=== PATIENT | female | born 1945 | race Caucasian/White ===

== ENCOUNTER 2020-07-10 01:17 | Inpatient (IN) | payer OTHER, SELFPAY ==
[~2020-07-10] VITALS: Ht 167.6 cm; Wt 90.7 kg
[2020-07-10] VITALS (23 sets, daily range): BP systolic 65–136
[~2020-07-10 01:17] MED LIST: BISO5TAB15 PO; FURO-149 PO; LISI-209 PO; PRAV20TA PO; WARF3TAB PO
[2020-07-10] MEDS ORDERED: NACL 0.9% 1,000 ML IV ONE ×2 (01:34)
[2020-07-10] MEDS ORDERED: ACETAMINOPHEN 650 MG/20.3 ML UDC PO ONE (02:00)
[2020-07-10 02:08] LABS: BASOPHILS % (AUTO) 0.1 % (0.0-2.0); EOSINOPHILS % (AUTO) 0.1 % (0.0-4.0); HEMATOCRIT 28.8 % (36-48); HEMOGLOBIN 9.3 g/dL (12.0-16.0); LYMPHOCYTES # (AUTO) 0.6 K/uL (1.0-5.5); LYMPHOCYTES % (AUTO) 4.2 % (20.5-51.5); MEAN CORPUSCULAR HEMOGLOBIN 28 pg (27-31); MEAN CORPUSCULAR HGB CONC 32 % (32-36); MEAN CORPUSCULAR VOLUME 85 fL (79.0-98.0); MONOCYTES # (AUTO) 0.3 K/uL (0.0-1.0); MONOCYTES % (AUTO) 2.5 % (1.7-9.3); NEUTROPHILS # (AUTO) 12.3 K/uL (1.8-7.7); NEUTROPHILS % (AUTO) 93.1 % (40.0-70.0); PLATELET COUNT (AUTO) 209 K/uL (130-430); RED BLOOD CELL COUNT(AUTO) 3.37 MIL/uL (4.2-6.2); RED CELL DISTRIBUTION WIDTH 16.3 % (9.0-15.0); WHITE BLOOD COUNT (AUTO) 13.2 K/uL (4.8-10.8)
[2020-07-10 02:08] LABS: BILIRUBIN,URINE NEGATIVE (NEGATIVE); CLARITY/URINE CLEAR (CLEAR); COLOR,URINE YELLOW (YELLOW); GLUCOSE,URINE NEGATIVE (NEGATIVE); KETONES,URINE NEGATIVE (NEGATIVE); LEUKOCYTE ESTERASE ,URINE 2+ (NEGATIVE); NITRITE, URINE NEGATIVE (NEGATIVE); PROTEIN URINE TRACE (NEGATIVE); UROBILINOGEN,URINE 0.2 (0.2-1.0)
[2020-07-10 02:14] LABS: BLOOD, URINE TRACE (NEGATIVE)
[2020-07-10 02:22] LABS: BACTERIA,URINE MODERATE /HPF (None Seen); WBC,URINE >100 /HPF (0-3)
[2020-07-10 02:22] LABS: ANION GAP 7 (5-15); CALCIUM 8.7 mg/dL (8.4-11.0); CHLORIDE 102 mmol/L (98-107); CREATININE 1.68 mg/dL (0.55-1.30); GLUCOSE 110 mg/dL (70-99); POTASSIUM 3.9 mmol/L (3.5-5.1); SODIUM SERUM 135 mmol/L (136-145); UREA NITROGEN, BLOOD 54 mg/dL (8-21)
[2020-07-10 02:30] LABS: INR 2.2 (0.8-1.2); PROTHROMBIN TIME 21.6 SECS (9.5-12.5)
[2020-07-10 02:40] LABS: ALANINE AMINOTRANSFERASE 19 U/L (12-78); ALBUMIN 2.3 g/dL (3.4-4.8); ASPARTATE AMINOTRANSFERASE 25 U/L (10-37); TOTAL BILIRUBIN 1.4 mg/dL (0.0-1.0)
[2020-07-10] MEDS ORDERED: ACETAMINOPHEN 650 MG/20.3 ML UDC ONE (02:41)
[2020-07-10] MEDS ORDERED: cefTRIAXone 1 GM IVPB PREMIX 50 ML IV ONE (03:45)
[2020-07-10] MEDS ORDERED: ZIA2.5/6.25 PO (03:57)
[2020-07-10] MEDS ORDERED: ACET325T PO (03:57)
[2020-07-10] MEDS ORDERED: DOCU-144 PO (03:58)
[2020-07-10] MEDS ORDERED: LORA-258 PO (04:05)
[2020-07-10] MEDS ORDERED: LISI40TA4 PO (04:05)
[2020-07-10] MEDS ORDERED: FOLI-43 PO (04:05)
[2020-07-10] MEDS ORDERED: FURO-149 PO (04:05)
[2020-07-10] MEDS ORDERED: QUET50TA PO (04:05)
[2020-07-10] MEDS ORDERED: PRAV40TA PO (04:05)
[2020-07-10] MEDS ORDERED: ACET-73 PO (04:08)
[2020-07-10] MEDS: NACL 0.9% 1,000 ML IV SCH ×2 (04:45→16:53)
[2020-07-10] MEDS ORDERED: NOREPINEPHRINE BITARTRATE 4 MG in NS 246 ML IV PRN (07:30)
[2020-07-10] MEDS ORDERED: NOREPINEPHRINE 4 MG/4 ML VIAL IV ONE ×2 (08:07)
[2020-07-10] MEDS ORDERED: ACETAMINOPHEN 325 MG TABLET PO PRN (08:15)
[2020-07-10] MEDS ORDERED: ACETAMINOPHEN 500 MG TABLET PO PRN (08:15)
[2020-07-10] MEDS: PIPERACILLIN/TAZO 2.25G/DEX-IS 50 ML IV SCH ×3 (08:41→21:59)
[2020-07-10] MEDS: DOCUSATE SODIUM 100 MG CAPSULE PO SCH ×3 (08:43→21:00)
[2020-07-10] MEDS: FOLIC ACID 1 MG TABLET PO SCH ×2 (08:43→09:00)
[2020-07-10] MEDS ORDERED: VANCOMYCIN HCL 1 GM/NS PREMIX 250 ML IV ONE (12:00)
[2020-07-10] MEDS ORDERED: METOCLOPRAMIDE HCL 10 MG/2 ML VIAL IVP ONE (13:14)
[2020-07-10] MEDS ORDERED: PROPOFOL 200MG/ 20ML VIAL (DIPRIVAN) IV ONE (13:14)
[2020-07-10] MEDS ORDERED: BUPIVACAINE /EPINEPHRINE/PF 0.25% 30 ML VIAL INJ ONE (13:14)
[2020-07-10] MEDS ORDERED: SEVOFLURANE 15 MIN GAS INH ONE (13:14)
[2020-07-10] MEDS ORDERED: NS IRRIG SOLN 1000 ML IR ONE (13:14)
[2020-07-10] MEDS ORDERED: ONDANSETRON HCL 4 MG/2 ML VIAL IVP ONE (13:14)
[2020-07-10] MEDS ORDERED: DEXAMETHASONE SOD PHOSPHATE 4 MG/ML VIAL IVP ONE (13:14)
[2020-07-10] MEDS: WARFARIN SODIUM 3 MG TABLET PO SCH (17:08)
[2020-07-11] VITALS (23 sets, daily range): BP systolic 90–140
[2020-07-11] MEDS: PIPERACILLIN/TAZO 2.25G/DEX-IS 50 ML IV SCH ×3 (05:40→21:33)
[2020-07-11 06:25] LABS: BASOPHILS # (AUTO) 0.1 K/uL (0.0-0.2); BASOPHILS % (AUTO) 0.9 % (0.0-2.0); EOSINOPHILS # (AUTO) 0.4 K/uL (0.0-0.4); EOSINOPHILS % (AUTO) 3.3 % (0.0-4.0); HEMOGLOBIN 9.7 g/dL (12.0-16.0); LYMPHOCYTES # (AUTO) 0.6 K/uL (1.0-5.5); MEAN CORPUSCULAR HEMOGLOBIN 28 pg (27-31); MEAN CORPUSCULAR HGB CONC 32 % (32-36); MEAN CORPUSCULAR VOLUME 85 fL (79.0-98.0); MONOCYTES # (AUTO) 0.6 K/uL (0.0-1.0); MONOCYTES % (AUTO) 5.1 % (1.7-9.3); NEUTROPHILS # (AUTO) 9.1 K/uL (1.8-7.7); NEUTROPHILS % (AUTO) 84.7 % (40.0-70.0); PLATELET COUNT (AUTO) 181 K/uL (130-430); RED BLOOD CELL COUNT(AUTO) 3.51 MIL/uL (4.2-6.2); RED CELL DISTRIBUTION WIDTH 16.1 % (9.0-15.0); WHITE BLOOD COUNT (AUTO) 10.8 K/uL (4.8-10.8)
[2020-07-11 06:52] LABS: INR 2.9 (0.8-1.2); PROTHROMBIN TIME 28.8 SECS (9.5-12.5)
[2020-07-11 07:01] LABS: ALANINE AMINOTRANSFERASE 16 U/L (12-78); ALBUMIN 2.1 g/dL (3.4-4.8); ANION GAP 10 (5-15); ASPARTATE AMINOTRANSFERASE 24 U/L (10-37); CALCIUM 8.5 mg/dL (8.4-11.0); CHLORIDE 113 mmol/L (98-107); CREATININE 1.06 mg/dL (0.55-1.30); GLUCOSE 89 mg/dL (70-99); POTASSIUM 3.8 mmol/L (3.5-5.1); SODIUM SERUM 146 mmol/L (136-145); UREA NITROGEN, BLOOD 33 mg/dL (8-21)
[2020-07-11] MEDS: NACL 0.9% 1,000 ML IV SCH (07:30)
[2020-07-11] MEDS: FOLIC ACID 1 MG TABLET PO SCH (09:00)
[2020-07-11] MEDS: DOCUSATE SODIUM 100 MG CAPSULE PO SCH ×2 (09:00→20:44)
[2020-07-11] MEDS ORDERED: fentaNYL CITRATE/PF 100 MCG/2 ML AMP ONE (11:06)
[2020-07-11] MEDS ORDERED: MIDAZOLAM HCL 5 MG/5 ML VIAL ONE (11:07)
[2020-07-11] MEDS ORDERED: HALOPERIDOL LACTATE 5 MG/ML VIAL IVP ONE ×2 (12:15→17:00)
[2020-07-11] MEDS: MORPHINE 2 MG/ML INJ. SYRINGE IVP PRN ×2 (12:58→17:50)
[2020-07-11] MEDS: D5/0.45 NS 1,000 ML IV SCH (15:25)
[2020-07-11] MEDS: WARFARIN SODIUM 3 MG TABLET PO SCH (15:26)
[2020-07-11] MEDS ORDERED: HALOPERIDOL LACTATE 5 MG/ML VIAL ONE (17:24)
[2020-07-11] MEDS: LORazepam 2 MG/ML VIAL IVP PRN (17:54)
[2020-07-11] MEDS: EMOLLIENT COMBINATION NO.73 78 GM CREAM..G. TP SCH (20:45)
[2020-07-11] MEDS: HALOPERIDOL LACTATE 5 MG/ML VIAL IVP SCH (21:33)
[2020-07-12] VITALS (12 sets, daily range): BP systolic 97–157
[2020-07-12] MEDS: MORPHINE 2 MG/ML INJ. SYRINGE IVP PRN ×5 (01:51→22:53)
[2020-07-12] MEDS: LORazepam 2 MG/ML VIAL IVP PRN ×2 (02:15→10:22)
[2020-07-12] MEDS: D5/0.45 NS 1,000 ML IV SCH ×2 (05:20→16:39)
[2020-07-12] MEDS: PIPERACILLIN/TAZO 2.25G/DEX-IS 50 ML IV SCH ×3 (05:24→21:56)
[2020-07-12] MEDS: HALOPERIDOL LACTATE 5 MG/ML VIAL IVP SCH ×3 (05:24→21:56)
[2020-07-12 05:42] LABS: BASOPHILS % (AUTO) 0.3 % (0.0-2.0); EOSINOPHILS # (AUTO) 0.8 K/uL (0.0-0.4); EOSINOPHILS % (AUTO) 9.3 % (0.0-4.0); HEMATOCRIT 29.6 % (36-48); HEMOGLOBIN 9.5 g/dL (12.0-16.0); LYMPHOCYTES # (AUTO) 1.2 K/uL (1.0-5.5); LYMPHOCYTES % (AUTO) 12.9 % (20.5-51.5); MEAN CORPUSCULAR HEMOGLOBIN 28 pg (27-31); MEAN CORPUSCULAR HGB CONC 32 % (32-36); MEAN CORPUSCULAR VOLUME 86 fL (79.0-98.0); MONOCYTES # (AUTO) 0.8 K/uL (0.0-1.0); MONOCYTES % (AUTO) 8.9 % (1.7-9.3); NEUTROPHILS # (AUTO) 6.2 K/uL (1.8-7.7); NEUTROPHILS % (AUTO) 68.6 % (40.0-70.0); PLATELET COUNT (AUTO) 176 K/uL (130-430); RED BLOOD CELL COUNT(AUTO) 3.42 MIL/uL (4.2-6.2); RED CELL DISTRIBUTION WIDTH 16.2 % (9.0-15.0); WHITE BLOOD COUNT (AUTO) 9.1 K/uL (4.8-10.8)
[2020-07-12 05:59] LABS: ALANINE AMINOTRANSFERASE 15 U/L (12-78); ALBUMIN 1.9 g/dL (3.4-4.8); ANION GAP 9 (5-15); ASPARTATE AMINOTRANSFERASE 19 U/L (10-37); CALCIUM 8.8 mg/dL (8.4-11.0); CHLORIDE 113 mmol/L (98-107); CREATININE 0.92 mg/dL (0.55-1.30); GLUCOSE 100 mg/dL (70-99); POTASSIUM 3.5 mmol/L (3.5-5.1); SODIUM SERUM 147 mmol/L (136-145); TOTAL BILIRUBIN 0.8 mg/dL (0.0-1.0); UREA NITROGEN, BLOOD 22 mg/dL (8-21)
[2020-07-12] MEDS: FOLIC ACID 1 MG TABLET PO SCH (07:18)
[2020-07-12] MEDS: DOCUSATE SODIUM 100 MG CAPSULE PO SCH ×2 (07:18→21:00)
[2020-07-12] MEDS: EMOLLIENT COMBINATION NO.73 78 GM CREAM..G. TP SCH ×2 (10:21→21:10)
[2020-07-12 12:33] LABS: INR 3.3 (0.8-1.2)
[2020-07-12 12:56] LABS: PROTHROMBIN TIME 33.1 SECS (9.5-12.5)
[2020-07-13] VITALS: BP_SYST 149
[2020-07-13] MEDS: LORazepam 2 MG/ML VIAL IVP PRN ×2 (02:02→11:37)
[2020-07-13] MEDS: PIPERACILLIN/TAZO 2.25G/DEX-IS 50 ML IV SCH ×3 (05:13→21:33)
[2020-07-13] MEDS: MORPHINE 2 MG/ML INJ. SYRINGE IVP PRN ×2 (05:56→18:05)
[2020-07-13] MEDS: D5/0.45 NS 1,000 ML IV SCH ×3 (06:11→21:46)
[2020-07-13] MEDS: HALOPERIDOL LACTATE 5 MG/ML VIAL IVP SCH ×3 (06:13→21:34)
[2020-07-13 07:50] LABS: BASOPHILS % (AUTO) 0.4 % (0.0-2.0); EOSINOPHILS # (AUTO) 0.7 K/uL (0.0-0.4); EOSINOPHILS % (AUTO) 7.9 % (0.0-4.0); HEMATOCRIT 31.1 % (36-48); HEMOGLOBIN 10.1 g/dL (12.0-16.0); LYMPHOCYTES # (AUTO) 1.2 K/uL (1.0-5.5); LYMPHOCYTES % (AUTO) 12.6 % (20.5-51.5); MEAN CORPUSCULAR HEMOGLOBIN 28 pg (27-31); MEAN CORPUSCULAR HGB CONC 33 % (32-36); MEAN CORPUSCULAR VOLUME 85 fL (79.0-98.0); MONOCYTES # (AUTO) 0.7 K/uL (0.0-1.0); MONOCYTES % (AUTO) 7.5 % (1.7-9.3); NEUTROPHILS # (AUTO) 6.6 K/uL (1.8-7.7); NEUTROPHILS % (AUTO) 71.6 % (40.0-70.0); PLATELET COUNT (AUTO) 204 K/uL (130-430); RED BLOOD CELL COUNT(AUTO) 3.66 MIL/uL (4.2-6.2); RED CELL DISTRIBUTION WIDTH 15.8 % (9.0-15.0); WHITE BLOOD COUNT (AUTO) 9.2 K/uL (4.8-10.8)
[2020-07-13 07:56] LABS: ALANINE AMINOTRANSFERASE 19 U/L (12-78); ANION GAP 6 (5-15); ASPARTATE AMINOTRANSFERASE 18 U/L (10-37); CALCIUM 8.9 mg/dL (8.4-11.0); CHLORIDE 110 mmol/L (98-107); CREATININE 0.91 mg/dL (0.55-1.30); GLUCOSE 110 mg/dL (70-99); POTASSIUM 3.3 mmol/L (3.5-5.1); SODIUM SERUM 142 mmol/L (136-145); TOTAL BILIRUBIN 0.9 mg/dL (0.0-1.0); UREA NITROGEN, BLOOD 13 mg/dL (8-21)
[2020-07-13 08:00] VITALS: BP_SYST 131
[2020-07-13 08:08] LABS: INR 4.4 (0.8-1.2); PROTHROMBIN TIME 43.6 SECS (9.5-12.5)
[2020-07-13] MEDS: EMOLLIENT COMBINATION NO.73 78 GM CREAM..G. TP SCH ×2 (08:27→21:55)
[2020-07-13] MEDS: DOCUSATE SODIUM 100 MG CAPSULE PO SCH ×2 (08:28→21:00)
[2020-07-13] MEDS: FOLIC ACID 1 MG TABLET PO SCH (08:28)
[2020-07-13] MEDS ORDERED: *PPN PER PHARMACY XX PRN (11:00)
[2020-07-13 11:52] LABS: PHOSPHORUS 3.2 mg/dL (2.7-4.5)
[2020-07-13 11:59] VITALS: BP_SYST 150
[2020-07-13 12:00] VITALS: BP_SYST 141
[2020-07-13] MEDS ORDERED: POTASSIUM CHLORIDE 20 MEQ in NS 250 ML IV ONE (13:00)
[2020-07-13 16:45] VITALS: BP_SYST 145
[2020-07-13 21:00] VITALS: BP_SYST 148
[2020-07-13] MEDS ORDERED: TPN PERIPHERAL IV SCH ×9 (21:00)
[2020-07-13] MEDS ORDERED: SODIUM ACETATE IV SCH ×9 (21:00)
[2020-07-13] MEDS ORDERED: POTASSIUM ACETATE IV SCH ×9 (21:00)
[2020-07-13] MEDS ORDERED: [UNRECOGNIZED DRUG - OTHER] IV SCH ×9 (21:00)
[2020-07-14 00:04] VITALS: BP_SYST 154
[2020-07-14] MEDS: LORazepam 2 MG/ML VIAL IVP PRN (00:58)
[2020-07-14] MEDS: PIPERACILLIN/TAZO 2.25G/DEX-IS 50 ML IV SCH (05:52)
[2020-07-14] MEDS: HALOPERIDOL LACTATE 5 MG/ML VIAL IVP SCH ×3 (05:53→21:09)
[2020-07-14 08:00] VITALS: BP_SYST 157
[2020-07-14 08:17] LABS: INR 4.6 (0.8-1.2)
[2020-07-14] MEDS: MORPHINE 2 MG/ML INJ. SYRINGE IVP PRN ×2 (08:46→18:36)
[2020-07-14 08:58] LABS: ANION GAP 7 (5-15); CALCIUM 8.7 mg/dL (8.4-11.0); CHLORIDE 107 mmol/L (98-107); CREATININE 0.82 mg/dL (0.55-1.30); GLUCOSE 122 mg/dL (70-99); POTASSIUM 3.2 mmol/L (3.5-5.1); SODIUM SERUM 139 mmol/L (136-145); TOTAL BILIRUBIN 0.9 mg/dL (0.0-1.0); UREA NITROGEN, BLOOD 9 mg/dL (8-21)
[2020-07-14 08:59] LABS: ALANINE AMINOTRANSFERASE 16 U/L (12-78); ALBUMIN 1.9 g/dL (3.4-4.8); ASPARTATE AMINOTRANSFERASE 15 U/L (10-37); PHOSPHORUS 3.2 mg/dL (2.7-4.5); TRIGLYCERIDES 95 mg/dL (30-150)
[2020-07-14] MEDS: DOCUSATE SODIUM 100 MG CAPSULE PO SCH ×2 (10:01→21:09)
[2020-07-14] MEDS: FOLIC ACID 1 MG TABLET PO SCH (10:01)
[2020-07-14] MEDS: EMOLLIENT COMBINATION NO.73 78 GM CREAM..G. TP SCH ×2 (10:02→21:10)
[2020-07-14 11:30] VITALS: BP_SYST 166
[2020-07-14 12:17] VITALS: BP_SYST 147
[2020-07-14] MEDS ORDERED: POTASSIUM CHLORIDE 20 MEQ TAB.PRT.SR PO ONE (13:15)
[2020-07-14] MEDS: AMPICILLIN SODIUM 1 GM in NS 50 ML IV SCH ×3 (13:49→23:12)
[2020-07-14 15:32] VITALS: BP_SYST 155
[2020-07-14 20:00] VITALS: BP_SYST 139
[2020-07-14] MEDS ORDERED: INSULIN REGULAR, HUMAN 100 UNITS/ML, 10 ML VIAL (humuLIN R) SUBCUT PRN (20:15)
[2020-07-14] MEDS ORDERED: TPN PERIPHERAL IV SCH ×9 (21:00)
[2020-07-14] MEDS ORDERED: POTASSIUM ACETATE IV SCH ×9 (21:00)
[2020-07-14] MEDS ORDERED: [UNRECOGNIZED DRUG - OTHER] IV SCH ×9 (21:00)
[2020-07-14] MEDS: D5/0.45 NS 1,000 ML IV SCH ×2 (21:00→23:18)
[2020-07-14] MEDS ORDERED: SODIUM ACETATE IV SCH ×9 (21:00)
[2020-07-15] VITALS: BP_SYST 120
[2020-07-15] MEDS: LORazepam 2 MG/ML VIAL IVP PRN ×2 (02:53→11:15)
[2020-07-15] MEDS: AMPICILLIN SODIUM 1 GM in NS 50 ML IV SCH ×4 (05:07→23:26)
[2020-07-15] MEDS: HALOPERIDOL LACTATE 5 MG/ML VIAL IVP SCH ×3 (05:08→21:18)
[2020-07-15 07:11] LABS: BASOPHILS # (AUTO) 0.1 K/uL (0.0-0.2); BASOPHILS % (AUTO) 0.7 % (0.0-2.0); EOSINOPHILS # (AUTO) 0.3 K/uL (0.0-0.4); EOSINOPHILS % (AUTO) 3.5 % (0.0-4.0); HEMATOCRIT 30.3 % (36-48); HEMOGLOBIN 9.9 g/dL (12.0-16.0); LYMPHOCYTES # (AUTO) 1.3 K/uL (1.0-5.5); LYMPHOCYTES % (AUTO) 15.8 % (20.5-51.5); MEAN CORPUSCULAR HEMOGLOBIN 28 pg (27-31); MEAN CORPUSCULAR HGB CONC 33 % (32-36); MEAN CORPUSCULAR VOLUME 84 fL (79.0-98.0); MONOCYTES # (AUTO) 0.9 K/uL (0.0-1.0); MONOCYTES % (AUTO) 10.9 % (1.7-9.3); NEUTROPHILS # (AUTO) 5.5 K/uL (1.8-7.7); NEUTROPHILS % (AUTO) 69.1 % (40.0-70.0); PLATELET COUNT (AUTO) 219 K/uL (130-430); RED CELL DISTRIBUTION WIDTH 15.8 % (9.0-15.0)
[2020-07-15 07:44] LABS: ALANINE AMINOTRANSFERASE 15 U/L (12-78); ANION GAP 7 (5-15); ASPARTATE AMINOTRANSFERASE 17 U/L (10-37); CALCIUM 8.4 mg/dL (8.4-11.0); CHLORIDE 105 mmol/L (98-107); CREATININE 0.75 mg/dL (0.55-1.30); GLUCOSE 119 mg/dL (70-99); PHOSPHORUS 2.7 mg/dL (2.7-4.5); POTASSIUM 3.3 mmol/L (3.5-5.1); SODIUM SERUM 138 mmol/L (136-145); TOTAL BILIRUBIN 1.1 mg/dL (0.0-1.0); UREA NITROGEN, BLOOD 9 mg/dL (8-21)
[2020-07-15 08:00] VITALS: BP_SYST 146
[2020-07-15 08:07] LABS: INR 1.8 (0.8-1.2); PROTHROMBIN TIME 18.2 SECS (9.5-12.5)
[2020-07-15] MEDS ORDERED: DIATR MEGLU/DIATRIZ SOD 30 ML SOLUTION PO ONE (08:58)
[2020-07-15] MEDS: FOLIC ACID 1 MG TABLET PO SCH (09:54)
[2020-07-15] MEDS: EMOLLIENT COMBINATION NO.73 78 GM CREAM..G. TP SCH ×2 (09:54→20:34)
[2020-07-15] MEDS: DOCUSATE SODIUM 100 MG CAPSULE PO SCH ×2 (09:54→21:18)
[2020-07-15] MEDS ORDERED: METOPROLOL SUCCINATE 25 MG TAB.SR.24H (TOPROL XL) PO ONE (11:15)
[2020-07-15 12:16] VITALS: BP_SYST 139
[2020-07-15 16:14] VITALS: BP_SYST 126
[2020-07-15] MEDS ORDERED: WARFARIN SODIUM 2 MG TABLET PO SCH (18:00)
[2020-07-15] MEDS: D5/0.45 NS 1,000 ML IV SCH (20:35)
[2020-07-15] MEDS ORDERED: [UNRECOGNIZED DRUG - OTHER] IV SCH ×10 (21:00)
[2020-07-15] MEDS ORDERED: SODIUM ACETATE IV SCH ×10 (21:00)
[2020-07-15] MEDS ORDERED: TPN PERIPHERAL IV SCH ×10 (21:00)
[2020-07-15] MEDS ORDERED: POTASSIUM ACETATE IV SCH ×10 (21:00)
[2020-07-16 01:19] VITALS: BP_SYST 130
[2020-07-16] MEDS: AMPICILLIN SODIUM 1 GM in NS 50 ML IV SCH ×4 (05:52→23:57)
[2020-07-16] MEDS: HALOPERIDOL LACTATE 5 MG/ML VIAL IVP SCH ×3 (05:52→22:01)
[2020-07-16 07:14] LABS: BASOPHILS % (AUTO) 0.6 % (0.0-2.0); EOSINOPHILS # (AUTO) 0.3 K/uL (0.0-0.4); HEMATOCRIT 29.9 % (36-48); HEMOGLOBIN 9.8 g/dL (12.0-16.0); LYMPHOCYTES # (AUTO) 1.3 K/uL (1.0-5.5); MEAN CORPUSCULAR HEMOGLOBIN 28 pg (27-31); MEAN CORPUSCULAR HGB CONC 33 % (32-36); MEAN CORPUSCULAR VOLUME 84 fL (79.0-98.0); MONOCYTES # (AUTO) 0.8 K/uL (0.0-1.0); MONOCYTES % (AUTO) 11.6 % (1.7-9.3); NEUTROPHILS # (AUTO) 4.2 K/uL (1.8-7.7); NEUTROPHILS % (AUTO) 63.8 % (40.0-70.0); PLATELET COUNT (AUTO) 221 K/uL (130-430); RED BLOOD CELL COUNT(AUTO) 3.55 MIL/uL (4.2-6.2); RED CELL DISTRIBUTION WIDTH 16.4 % (9.0-15.0); WHITE BLOOD COUNT (AUTO) 6.6 K/uL (4.8-10.8)
[2020-07-16 07:57] LABS: ANION GAP 7 (5-15); CALCIUM 8.3 mg/dL (8.4-11.0); CHLORIDE 106 mmol/L (98-107); GLUCOSE 121 mg/dL (70-99); PHOSPHORUS 3.2 mg/dL (2.7-4.5); POTASSIUM 3.6 mmol/L (3.5-5.1); SODIUM SERUM 140 mmol/L (136-145); UREA NITROGEN, BLOOD 13 mg/dL (8-21)
[2020-07-16 08:00] VITALS: BP_SYST 119
[2020-07-16] MEDS: FOLIC ACID 1 MG TABLET PO SCH (10:05)
[2020-07-16] MEDS: METOPROLOL SUCCINATE 25 MG TAB.SR.24H (TOPROL XL) PO SCH (10:05)
[2020-07-16] MEDS: EMOLLIENT COMBINATION NO.73 78 GM CREAM..G. TP SCH ×2 (10:05→22:02)
[2020-07-16] MEDS: DOCUSATE SODIUM 100 MG CAPSULE PO SCH ×2 (10:05→21:59)
[2020-07-16 10:27] LABS: INR 1.3 (0.8-1.2); PROTHROMBIN TIME 12.9 SECS (9.5-12.5)
[2020-07-16] MEDS: D5/0.45 NS 1,000 ML IV SCH (10:28)
[2020-07-16 12:36] VITALS: BP_SYST 123
[2020-07-16 16:45] VITALS: BP_SYST 135
[2020-07-16] MEDS ORDERED: WARFARIN SODIUM 2.5 MG TABLET PO SCH (18:00)
[2020-07-16 19:20] VITALS: BP_SYST 155
[2020-07-16] MEDS: [UNRECOGNIZED DRUG - OTHER] IV SCH ×10 (21:55)
[2020-07-16] MEDS: POTASSIUM ACETATE IV SCH ×10 (21:55)
[2020-07-16] MEDS: TPN PERIPHERAL IV SCH ×10 (21:55)
[2020-07-16] MEDS: SODIUM ACETATE IV SCH ×10 (21:55)
[2020-07-16] MEDS: metroNIDAZOLE 500 mg/NS 100 ML IV SCH (21:59)
[2020-07-17] VITALS: BP_SYST 129
[2020-07-17] MEDS: HALOPERIDOL LACTATE 5 MG/ML VIAL IVP SCH ×2 (06:12→15:00)
[2020-07-17] MEDS: AMPICILLIN SODIUM 1 GM in NS 50 ML IV SCH ×4 (06:15→23:13)
[2020-07-17 07:05] LABS: INR 1.2 (0.8-1.2); PROTHROMBIN TIME 12.6 SECS (9.5-12.5)
[2020-07-17 07:28] LABS: ALANINE AMINOTRANSFERASE 13 U/L (12-78); ANION GAP 9 (5-15); ASPARTATE AMINOTRANSFERASE 22 U/L (10-37); CALCIUM 8.8 mg/dL (8.4-11.0); CHLORIDE 104 mmol/L (98-107); CREATININE 0.64 mg/dL (0.55-1.30); GLUCOSE 108 mg/dL (70-99); PHOSPHORUS 3.6 mg/dL (2.7-4.5); POTASSIUM 4.4 mmol/L (3.5-5.1); SODIUM SERUM 139 mmol/L (136-145); TOTAL BILIRUBIN 0.9 mg/dL (0.0-1.0); UREA NITROGEN, BLOOD 17 mg/dL (8-21)
[2020-07-17] MEDS ORDERED: COMMUNICATION ORDER XX ONE (07:45)
[2020-07-17 08:50] VITALS: BP_SYST 116
[2020-07-17] MEDS: METOPROLOL SUCCINATE 25 MG TAB.SR.24H (TOPROL XL) PO SCH (09:00)
[2020-07-17] MEDS: FOLIC ACID 1 MG TABLET PO SCH (09:00)
[2020-07-17] MEDS: DOCUSATE SODIUM 100 MG CAPSULE PO SCH ×2 (09:00→21:00)
[2020-07-17] MEDS: metroNIDAZOLE 500 mg/NS 100 ML IV SCH ×2 (09:29→21:24)
[2020-07-17] MEDS: EMOLLIENT COMBINATION NO.73 78 GM CREAM..G. TP SCH ×2 (09:33→21:00)
[2020-07-17 13:30] VITALS: BP_SYST 133
[2020-07-17] MEDS ORDERED: POLYMYXIN 500,000/BACIT.10,000 UNITS in NS IRR 1 L IR ONE (13:50)
[2020-07-17] MEDS ORDERED: LR 1,000 ML IV SCH (13:52)
[2020-07-17] MEDS ORDERED: MEPERIDINE HCL/PF 25 MG/ML DISP.SYRIN IVP PRN (14:00)
[2020-07-17] MEDS ORDERED: ONDANSETRON HCL 4 MG/2 ML VIAL IVP PRN (14:00)
[2020-07-17] MEDS ORDERED: HYDROmorphone 1 MG INJ. 1 MG/ML AMPUL IVP PRN (14:00)
[2020-07-17] MEDS ORDERED: HEPARIN IV FLUSH 300 UNITS/3ML SYR INJ ONE (17:00)
[2020-07-17 17:42] VITALS: BP_SYST 121
[2020-07-17] MEDS ORDERED: WARFARIN SODIUM 3 MG TABLET PO SCH (18:00)
[2020-07-17 20:00] VITALS: BP_SYST 114
[2020-07-17] MEDS ORDERED: HALOPERIDOL LACTATE 5 MG/ML VIAL IVP PRN (21:15)
[2020-07-17] MEDS: [UNRECOGNIZED DRUG - OTHER] IV SCH ×10 (21:25)
[2020-07-17] MEDS: TPN PERIPHERAL IV SCH ×10 (21:25)
[2020-07-17] MEDS: POTASSIUM ACETATE IV SCH ×10 (21:25)
[2020-07-17] MEDS: SODIUM ACETATE IV SCH ×10 (21:25)
[2020-07-18 00:30] VITALS: BP_SYST 111
[2020-07-18] MEDS: AMPICILLIN SODIUM 1 GM in NS 50 ML IV SCH ×2 (05:50→12:48)
[2020-07-18 07:38] LABS: INR 1.1 (0.8-1.2); PROTHROMBIN TIME 11.5 SECS (9.5-12.5)
[2020-07-18 07:48] LABS: ALANINE AMINOTRANSFERASE 10 U/L (12-78); ALBUMIN 1.9 g/dL (3.4-4.8); ANION GAP 6 (5-15); ASPARTATE AMINOTRANSFERASE 21 U/L (10-37); CALCIUM 8.6 mg/dL (8.4-11.0); CHLORIDE 106 mmol/L (98-107); GLUCOSE 128 mg/dL (70-99); PHOSPHORUS 3.5 mg/dL (2.7-4.5); POTASSIUM 4.5 mmol/L (3.5-5.1); SODIUM SERUM 140 mmol/L (136-145); TOTAL BILIRUBIN 0.6 mg/dL (0.0-1.0); UREA NITROGEN, BLOOD 20 mg/dL (8-21)
[2020-07-18 07:55] VITALS: BP_SYST 109
[2020-07-18] MEDS: FOLIC ACID 1 MG TABLET PO SCH (09:00)
[2020-07-18] MEDS: DOCUSATE SODIUM 100 MG CAPSULE PO SCH ×2 (09:00→21:00)
[2020-07-18] MEDS: METOPROLOL SUCCINATE 25 MG TAB.SR.24H (TOPROL XL) PO SCH (09:00)
[2020-07-18] MEDS: metroNIDAZOLE 500 mg/NS 100 ML IV SCH ×2 (09:33→21:14)
[2020-07-18] MEDS: D5/0.45 NS 1,000 ML IV SCH ×2 (09:33→21:00)
[2020-07-18] MEDS: EMOLLIENT COMBINATION NO.73 78 GM CREAM..G. TP SCH ×2 (10:00→21:00)
[2020-07-18 12:05] VITALS: BP_SYST 120
[2020-07-18 16:08] VITALS: BP_SYST 100
[2020-07-18] MEDS ORDERED: WARFARIN SODIUM 2.5 MG TABLET PO SCH (18:00)
[2020-07-18] MEDS ORDERED: cefTRIAXone 1 GM in D5W 50 ML IV SCH (18:00)
[2020-07-18 18:11] VITALS: BP_SYST 100
[2020-07-18 20:15] VITALS: BP_SYST 116
[2020-07-18] MEDS ORDERED: [UNRECOGNIZED DRUG - OTHER] IV SCH ×10 (21:00)
[2020-07-18] MEDS ORDERED: SODIUM ACETATE IV SCH ×10 (21:00)
[2020-07-18] MEDS ORDERED: POTASSIUM ACETATE IV SCH ×10 (21:00)
[2020-07-18] MEDS ORDERED: TPN PERIPHERAL IV SCH ×10 (21:00)
== END 2020-07-18 21:15 | DRG 853 ==
LOC: SED 01:17 → STU 04:09 → SIC 06:30 → STU 07-12 16:34
PROVIDERS: ADMIT Internal Medicine; ATTEND Internal Medicine
PROC: 0DH63UZ Insertion of Feeding Device into Stomach, Percutaneous Approach (ICD-10-PCS; 2020-07-11)
PROC: 0DP6XUZ Removal of Feeding Device from Stomach, External Approach (ICD-10-PCS; 2020-07-11)
PROC: 0JB80ZZ Excision of Abdomen Subcutaneous Tissue and Fascia, Open Approach (ICD-10-PCS; principal; 2020-07-17 13:14)
DX: A41.89 Other specified sepsis (principal); R65.21 Severe sepsis with septic shock; J18.9 Pneumonia, unspecified organism; L03.311 Cellulitis of abdominal wall; N39.0 Urinary tract infection, site not specified; K94.23 Gastrostomy malfunction; E44.0 Moderate protein-calorie malnutrition; D68.9 Coagulation defect, unspecified; I48.21 Permanent atrial fibrillation; N17.9 Acute kidney failure, unspecified; K94.22 Gastrostomy infection; I95.9 Hypotension, unspecified; F03.90 Unspecified dementia, unspecified severity, without behavioral disturbance, psychotic disturbance, mood disturbance, and anxiety; F20.9 Schizophrenia, unspecified; E66.01 Morbid (severe) obesity due to excess calories; N18.9 Chronic kidney disease, unspecified; Z20.828 Contact with and (suspected) exposure to other viral communicable diseases; D64.9 Anemia, unspecified; Z79.899 Other long term (current) drug therapy; Z68.32 Body mass index [BMI] 32.0-32.9, adult; Z79.01 Long term (current) use of anticoagulants
CPT/HCPCS: 36415; 43246; 71045; 80048; 80053; 81000-TC; 82140-TC; 82272; 82962; 83605; 83735-TC; 84100-TC; 84478-TC; 84484; 85025; 85610-TC; 85730-TC; 86886; 86900; 86901; 87040-TC; 87070; 87070-TC; 87075-TC; 87081; 87086; 87186-TC; 87205-TC; 88304; 88305; 93005; 93306; 96361; 96365; 96375; 97110-GP; 97163; 97530-GP; 99285; 99291; C1751; G0378; J0290; J0696; J1100; J1630; J1642; J1815; J2060; J2250; J2270; J2405; J2543; J2704; J2765; J3010; J3370; J3475; J3480; J3490; J7030; J7042; J7050; J7060; Q9964

== ENCOUNTER 2023-09-13 20:40 | Emergency (ER) | payer OTHER ==
[~2023-09-13] VITALS: Ht 162.6 cm; Wt 127.0 kg
[~2023-09-13 20:40] MED LIST changes: +ACET-73 PO; +ACET325T PO; +DOCU-144 PO; +FOLI-43 PO; +LISI40TA13 PO; +LORA-258 PO; +PRAV40TA PO; +QUET50TA PO; +ZIA2.5/6.25 PO
[2023-09-13 20:48] VITALS: BP_SYST 110; PULSE 64; RESP 20; TEMP 97.4; O2SAT 98
[2023-09-13] MEDS ORDERED: KETOROLAC TROMETHAMINE 30 MG VIAL IM ONE (21:45)
[2023-09-13] MEDS ORDERED: DICL20GE TP (22:11)
[2023-09-14 03:05] VITALS: BP_SYST 134; PULSE 88; RESP 18; TEMP 98.3; O2SAT 94
== END 2023-09-14 02:45 | disposition home or self-care (01) ==
LOC: SED 20:40
DX: S40.012A Contusion of left shoulder, initial encounter (principal); I10 Essential (primary) hypertension; Z79.899 Other long term (current) drug therapy; W06.XXXA Fall from bed, initial encounter; Y93.89 Activity, other specified; Y92.89 Other specified places as the place of occurrence of the external cause; Y99.8 Other external cause status
CPT/HCPCS: 99283; 82962; 93005; 73030; 96372; J1885